=== PATIENT | male | born 1955 | race Caucasian/White ===

== ENCOUNTER → 2016-11-30 | Outpatient (CLI) | payer BC ==
[~2016-11-30] MED LIST: GADOBUTROL 10 ML VIAL IVP ONE
== END ==
LOC: FIMAGING 06:55
PROVIDERS: ATTEND Internal Medicine Cardiovascular Disease
DX: R94.31 Abnormal electrocardiogram [ECG] [EKG] (principal)
CPT/HCPCS: A9585

== ENCOUNTER 2016-12-06 11:00 | Inpatient (IN) | payer BC ==
[2016-12-06] MEDS ORDERED: NS 1,000 ML IV ONE (11:28)
--- NOTE | 2016-12-06 11:46 | CPEKG ---
Heart Rate: 54 RR Interval: 1111 P-R Interval: 156 QRSD Interval: 150 QT Interval: 488 QTC Interval: 463 P [place]: 51 QRS [place]: 107 T Wave [place]: -7 EKG Severity - ABNORMAL ECG - EKG Impression: SINUS RHYTHM EKG Impression: RIGHT BUNDLE BRANCH BLOCK Electronically Signed By: Elie Vance 06-Dec-2016 15:09:37
[2016-12-06 12:05] LABS: % IMMATURE GRANULYOCYTES 0.2 % (0.0-1.1); ABSOLUTE IMMATURE GRANULOCYTES 0.01 10^3/uL (0.00-0.10); ADD DIFF? NO; ADD MORPH? NO; ADD SCAN? NO; ATYPICAL LYMPHOCYTE FLAG 0 (0-99); FRAGMENT RBC FLAG 0 (0-99); HEMATOCRIT 43.4 % (40.0-51.0); LEFT SHIFT FLG 0 (0-99); LIPEMIA HEMOLYSIS FLAG 90 (0-99); MEAN CELL HEMOGLOBIN 30.2 pg (27.9-34.1); MEAN CELL HEMOGLOBIN CONCENTR. 34.6 g/dL (32.4-36.7); MEAN CELL VOLUME 87.3 fL (81.5-99.8); PLATELET CLUMPS FLAG 0 (0-99); PLATELET COUNT 172 10^3/uL (150-400); RED BLOOD CELL COUNT 4.97 10^6/uL (4.40-6.38); RED CELL DISTRIBUTION WIDTH 12.4 % (11.5-15.2)
[2016-12-06 12:14] LABS: INR 1.12 (0.83-1.16); PROTIME(PATIENT) 14.3 SEC (12.0-15.0)
[2016-12-06 12:15] LABS: APTT 29.4 SEC (23.0-38.0)
[2016-12-06 12:23] LABS: ANION GAP 8 mEq/L (8-16); CALCIUM 9.4 mg/dL (8.5-10.4); CARBON DIOXIDE 28 mEq/l (22-31); CHLORIDE 104 mEq/L (97-110); CREATININE 0.9 mg/dL (0.7-1.3); GLOMERULAR FILTRATION RATE > 60; GLUCOSE 87 mg/dL (70-100); MAGNESIUM 2.1 mg/dL (1.6-2.3); POTASSIUM 4.4 mEq/L (3.5-5.2); SODIUM 140 mEq/L (134-144)
--- NOTE | 2016-12-06 14:43 | PDHPUP ---
History & Physical Update H&P update statement: This history and physical update is based on an assessment of the patient which was completed after admission or registration (within 24 hours), but prior to the surgery/procedure. H&P update: H&P reviewed & patient examined, no change in patient's condition since H&P completed
[2016-12-06] MEDS ORDERED: PROPOFOL/EMULSION 500 MG/50 ML BOTTLE IV ONE ×2 (15:22→15:27)
[2016-12-06] MEDS ORDERED: fentaNYL 100 MCG/2 ML INJ ONE (15:22)
[2016-12-06] MEDS ORDERED: ALBUTEROL 3 ML DEYVIAL IH PRN (15:54)
[2016-12-06] MEDS ORDERED: DEXAMETHASONE 4 MG/ML VIAL IVP PRN (15:54)
[2016-12-06] MEDS ORDERED: NALOXONE HCL 0.4 MG/ML INJ IVP PRN (15:54)
[2016-12-06] MEDS ORDERED: fentaNYL 100 MCG/2 ML INJ IVP PRN (15:54)
[2016-12-06] MEDS ORDERED: METOCLOPRAMIDE 10 MG/2 ML VIAL IVP PRN (15:54)
[2016-12-06] MEDS ORDERED: LR 500 ML IV PRN (15:54)
[2016-12-06] MEDS ORDERED: ONDANSETRON 4 MG/2 ML VIAL IVP PRN ×2 (15:54→17:26)
[2016-12-06] MEDS ORDERED: MEPERIDINE 25 MG/ML SYR IVP PRN (15:54)
[2016-12-06] MEDS ORDERED: PROMETHAZINE HCL 25 MG/ML INJ IVP PRN (15:54)
[2016-12-06] MEDS ORDERED: HYDROmorphONE/DILAUDID 1 MG/ML INJ IVP PRN (15:54)
[2016-12-06] MEDS ORDERED: HYDROCODONE/APAP 5/325 TAB PO PRN (15:54)
[2016-12-06] MEDS ORDERED: OXYCODONE/APAP 5/325 TAB PO PRN (15:54)
[2016-12-06] MEDS ORDERED: LABETALOL HCL 50 MG/10 ML SYR IVP PRN (15:54)
[2016-12-06] MEDS ORDERED: ACETAMINOPHEN 500 MG TAB PO PRN (15:54)
--- NOTE | 2016-12-06 15:54 | PDANEPAE ---
ANE History of Present Illness 61 year old male with wide complex tachycardia for EP study. ANE Past Medical History - Cardiovascular History Hx Hypertension: Yes Hx Arrhythmias: Yes - Pulmonary History Hx Sleep Apnea: Yes - Endocrine History Hx Diabetes: No ANE Review of Systems Review of Systems: ANE Patient History - Allergies Allergies/Adverse Reactions: No Known Allergies Allergy (Verified 02/27/14 15:42) - Home Medications Home Medications: Atorvastatin Calcium [Lipitor 10 mg (RX)] 10 mg PO DAILY18 06/14/12 [Last Taken 12/05/16] Aspirin [Aspirin 81mg (*)] 81 mg PO DAILY 12/06/16 [Last Taken 12/03/16] Lisinopril [Zestril 10 mg (*)] 10 mg PO DAILY 12/06/16 [Last Taken 12/05/16] - Smoking Hx Smoking Status: Never smoked ANE Labs/Vital Signs - Labs Result Diagrams: 12/06/16 11:45 12/06/16 11:45 - Vital Signs Height: 193 cm Weight: 113.4 kg ANE Physical Exam - Airway Mallampati Score: Class 2 - Pulmonary Pulmonary: no respiratory distress - Cardiovascular Cardiovascular: regular rate and rhythym - ASA Status ASA Status: III
[2016-12-06] MEDS ORDERED: ISOPROTERENOL HCL/D5W 0.2 MG/50 ML BAG IV ONE ×2 (16:22→16:58)
[2016-12-06] MEDS ORDERED: HEPARIN 10,000 UNIT/10 ML MDV ONE (16:25)
[2016-12-06] MEDS ORDERED: LIDOCAINE 1% 300 MG/30 ML SDV ONE (17:15)
[2016-12-06] MEDS ORDERED: BUPIVACAINE 0.5% 30 ML SDV ONE (17:15)
[2016-12-06] MEDS ORDERED: ACETAMINOPHEN 325 MG TAB PO PRN (17:26)
--- NOTE | 2016-12-06 17:40 | EPPROC ---
Electrophysiology Procedure Note: DIAGNOSTIC ELECTROPHYSIOLOGIC STUDY Procedures performed: 1. Fluoroscopy 2. EP evaluation with RA/RV/LA pace/record, with arrhythmia induction 3. EP evaluation with RA/RV pace record, insert/reposition catheter, with arrhythmia induction 4. [id number] Programmed stimulation + pacing after IV drug INDICATION: Sustained WCT with presyncope requiring cardioversion. PROCEDURE: Catheters & Anesthesia: The patient arrived in the Electrophysiology Laboratory in the fasting state. The right clavicular region, right groin, & left groin area were prepped & draped in the usual sterile manner. Anesthesiologist administered general anesthesia. Appropriate non-invasive blood pressure, pulse oximetry & end- tidal CO2 monitoring was established. All catheters were placed percutaneously using the modified Seldinger technique , and advanced into position under fluoroscopic guidance. Halo catheter was placed along the tricuspid annulus via LFV. One #7 Fijian deflectable octapolar electrode catheter was advanced to the His-bundle position via the left femoral vein (2mm spacing). One #7 [place]ijian deflectable catheter with 10 pairs of electrodes was placed via the left femoral vein into the coronary sinus. Programmed stimulation was performed from the right atrium, right ventricle and coronary sinus (left atrium). Parahisian pacing demonstrated constant H-A interval with changing V-A intervals and stimulus-A intervals during capture and loss of capture of proximal RBB proving retrograde conduction over AV node. Underlying rhythm NSR, RBBB, QRS duration 165 ms AV WBB 430 ms, no antegrade SP Retrograde (VA) WBB 560 ms SCL 1000 ms AH 85 ms HV 45 ms Heparin was administered to keep ACT > 200 seconds. Atrial flutter, CL 200 ms was induced during isoproterenol infusion. Clinically documented WCT was 245 bpm. Ventricular programmed stimulation was performed using standard protocol (2 pacing sites, 2 basic cycle lengths, up to 3 extrastimuli at twice pacing threshold). Ventricular burst pacing and long/short sequence pacing was also performed. 2 different VT were induced: VT #1 CL 210 ms, RBBB, superior axis, required cardioversion VT#2 CL 250-270 ms, RBBB, inferior axis, duration 1 min 30 seconds then self terminated VA dissociation was seen during VT. The catheters were removed. The patient was transferred to the cardiovascular holding area in stable condition. Vascular access sheaths were removed in the holding area. There were no apparent complications. ICD will be placed after d.w. patient. CONCLUSIONS 1. Normal sinus and AV node function. 2. RBBB with QRS duration 165 ms. 3. Sustained monomorphic VT, 2 different morphology induced. 4. Dual chamber ICD recommended, will be placed tomorrow. 5. No apparent complications. Patient Problems: Problems Problem Status Onset Wide-complex tachycardia Acute
--- NOTE | 2016-12-06 17:49 | CPEKG ---
Heart Rate: 69 RR Interval: 870 P-R Interval: 160 QRSD Interval: 162 QT Interval: 464 QTC Interval: 497 P [place]: 30 QRS [place]: -172 T Wave [place]: -7 EKG Severity - ABNORMAL ECG - EKG Impression: SINUS RHYTHM EKG Impression: RIGHT BUNDLE BRANCH BLOCK Electronically Signed By: Elie Vance 07-Dec-2016 06:52:16
[2016-12-06] MEDS: OXYCODONE/APAP 5/325 TAB PO PRN ×2 (18:37→21:40)
[2016-12-06] MEDS: ATORVASTATIN CALCIUM 10 MG TAB PO SCH (21:42)
[2016-12-07 05:26] LABS: % IMMATURE GRANULYOCYTES 0.2 % (0.0-1.1); ABSOLUTE IMMATURE GRANULOCYTES 0.02 10^3/uL (0.00-0.10); ADD DIFF? NO; ADD MORPH? NO; ADD SCAN? NO; ATYPICAL LYMPHOCYTE FLAG 0 (0-99); FRAGMENT RBC FLAG 0 (0-99); HEMATOCRIT 41.3 % (40.0-51.0); HEMOGLOBIN 14.2 g/dL (13.7-17.5); LEFT SHIFT FLG 10 (0-99); LIPEMIA HEMOLYSIS FLAG 90 (0-99); MEAN CELL HEMOGLOBIN 30.2 pg (27.9-34.1); MEAN CELL HEMOGLOBIN CONCENTR. 34.4 g/dL (32.4-36.7); MEAN CELL VOLUME 87.9 fL (81.5-99.8); MEAN PLATELET VOLUME 10.3 fL (8.7-11.7); PLATELET CLUMPS FLAG 10 (0-99); PLATELET COUNT 178 10^3/uL (150-400); RED CELL DISTRIBUTION WIDTH 12.1 % (11.5-15.2)
[2016-12-07 05:33] LABS: INR 1.11 (0.83-1.16); PROTIME(PATIENT) 14.2 SEC (12.0-15.0)
[2016-12-07 05:34] LABS: APTT 28.1 SEC (23.0-38.0)
[2016-12-07 05:47] LABS: ALANINE AMINOTRANSFERASE 37 IU/L (21-72); ALBUMIN 3.9 g/dL (3.5-5.0); ALKALINE PHOSPHATASE 42 IU/L (38-126); ANION GAP 13 mEq/L (8-16); ASPARTATE AMINOTRANSFERASE 22 IU/L (17-59); CALCIUM 8.9 mg/dL (8.5-10.4); CARBON DIOXIDE 23 mEq/l (22-31); CHLORIDE 103 mEq/L (97-110); CREATININE 0.8 mg/dL (0.7-1.3); GLOMERULAR FILTRATION RATE > 60; GLUCOSE 145 mg/dL (70-100); POTASSIUM 4.5 mEq/L (3.5-5.2); SODIUM 139 mEq/L (134-144); TOTAL PROTEIN 6.3 g/dL (6.3-8.2)
[2016-12-07 05:52] LABS: CREATINE KINASE-MB FRACTION 2.35 ng/mL (0.00-3.19); TROPONIN I 0.044 ng/mL (0.000-0.034)
[2016-12-07] MEDS ORDERED: diphenhydrAMINE 25 MG CAP PO ONE (06:00)
[2016-12-07] MEDS ORDERED: NS 1,000 ML IV ONE (06:00)
[2016-12-07] MEDS ORDERED: DIAZEPAM 5 MG TAB PO ONE (06:00)
[2016-12-07] MEDS ORDERED: BACITRACIN IRRIGATION/NS 50,000 UNITS/1,000 ML BTL IRR ONE (06:00)
[2016-12-07] MEDS ORDERED: ceFAZolin 2 GM/DEXTROSE 100 ML IV ONE (06:00)
[2016-12-07] MEDS: ASPIRIN 81 MG CHEWABLE TAB PO SCH (09:03)
[2016-12-07] MEDS: LISINOPRIL 10 MG TAB PO SCH (09:04)
--- NOTE | 2016-12-07 09:08 | CPEKG ---
Heart Rate: 63 RR Interval: 952 P-R Interval: 152 QRSD Interval: 164 QT Interval: 464 QTC Interval: 476 P [place]: 49 QRS [place]: 182 T Wave [place]: -14 EKG Severity - ABNORMAL ECG - EKG Impression: SINUS RHYTHM EKG Impression: RBBB Electronically Signed By: Elie Vance 07-Dec-2016 09:20:05
[2016-12-07] MEDS ORDERED: ENOXAPARIN 60 MG/0.6 ML SYR SC SCH (09:15)
--- NOTE | 2016-12-07 10:11 | PDPROPOC ---
Sedation Plan of Care Sedation Plan of Care: vital signs stable, mental status noted, patient educated of risks, benefits, alternatives, patient can tolerate sedation ASA Classification: ASA 2 Planned drugs: fentanyl, midazolam Mallampati Score: Class 2 Mallampati Reference Image: Patient passed 3-3-2 rule?: Yes
--- NOTE | 2016-12-07 10:14 | PDCARPN ---
Cardiology Progress Note Chief Complaint: Presyncope Assessment/Plan: Assessment: VT with presyncope requiring DCCV Inducible VT at EP study, sustained x 2 RBBB with infrahisian conduction disease QRSx 160 ms Plan: Dual chamber ICD today Risks d.w. patient and - tamponade, ptx, infn, bleed, dvt, pe, lead dislodgement etc Risks of lead fracture and inappropriate ICD shock d.w. him Will start sotalol post ICD to reduce risk of ICD shock Will check genetic testing for ARVD given RBBB and VT 12/07/16 10:12 Subjective: Presyncope with VT, required DCCV Reviewed/Discussed With: family Time Spent With Patient: 25 min Objective: Vital Signs (8 Hrs) Temp Pulse Resp BP Pulse Ox 12/07/16 09:04 118/73 12/07/16 08:19 36.6 C 69 18 118/73 91 L 12/07/16 04:37 36.6 C 68 13 107/68 91 L Intake/Output (24 Hrs) 12/05/16 12/06/16 12/07/16 11:59 11:59 11:59 Intake Total 850 Balance 850 Intake: IV Intake (ml) 850 Other: Weight 113.4 kg Number of Voids Toilet 1 Result Diagrams: 12/07/16 04:36 12/07/16 04:36 Cardiac Labs: Cardiac Lab Results (72 Hrs) 12/07/16 04:36 CK-MB (CK-2) Fraction 2.35 Troponin I 0.044 H ICD10 Worksheet Patient Problems: Problems Problem Status Onset Wide-complex tachycardia Acute
[2016-12-07] MEDS ORDERED: fentaNYL 100 MCG/2 ML INJ ONE ×2 (10:24→10:59)
[2016-12-07] MEDS ORDERED: MIDAZOLAM 2 MG/2 ML VIAL ONE ×3 (10:24→10:59)
[2016-12-07] MEDS ORDERED: BUPIVACAINE 0.5% 30 ML SDV ONE (10:24)
[2016-12-07] MEDS ORDERED: LIDOCAINE 1% 300 MG/30 ML SDV ONE (10:24)
[2016-12-07] MEDS ORDERED: IOPAMIDOL (ISOVUE-300) 100 ML BTL ONE (10:25)
--- NOTE | 2016-12-07 11:49 | EPPROC ---
Electrophysiology Procedure Note: PROCEDURE PERFORMED: 1. Implantation of an A-V Implantable Cardioverter Defibrillator 2. Subclavian vein angiography 3. Fluoroscopy INDICATION: Sustained VT with presyncope VT inducible at EP study Infrahisian conduction disease, RBBB, QRS duration 160 ms PROCEDURE NOTE: Patient presented to the cardiac catheterization laboratory in a fasting, postabsorptive state. The left infraclavicular area was prepped and draped in the usual sterile fashion. EP RN administered sedation. Lidocaine plus bupivacaine was used for local anesthesia. Left subclavian venography was performed by injection of iodinated contrast into the left antecubital vein. This was done to assure patency of the vein and also to assess for any anatomical aberrations. Using a combination of blunt and sharp dissection and electrocautery, the dissection was carried down to the prepectoral fascia. A pocket was made in this anatomical plane. All bleeding was controlled with electrocautery. The pocket was packed with gauze soaked in antibiotic solution. Fluoroscopy was utilized during the entire procedure for venous access and placement of the leads. Using a direct stick technique the left extrathoracic axillary vein was accessed with 2 sticks using the modified Seldinger technique. Placement of the guide wires into the venous system was confirmed by low pressure blood return and also by visualizing the guide wires advancing into the inferior vena cava. A purse string suture was applied around the guide wires. #7 Fr and #6 Fr sheaths were advanced under fluoroscopic guidance over the guide wires. An active fixation ventricular ICD lead was advanced into the right ventricular apex and screwed in place. An active fixation atrial lead was advanced into the right atrial appendage and screwed in place. Please note that patients heart is significantly rightward rotated (AP view looks like [place] view) The peel away sheaths were removed. Pacing thresholds, sensing parameters and leads impedances were measured. There was no diaphragmatic stimulation at maximum output. The leads were sutured to the prepectoral fascia with 3 non-absorbable sutures. The gauze packing was removed from the ICD pocket. The pocket was again inspected for any bleeding. The leads were attached to the ICD securely. The ICD was inserted into the pocket and secured in place with a nonabsorbable suture. Fluoroscopy was performed in [place]AG[place] and [place] planes to verify right sided placement of the leads. Also fluoroscopy of the ICD pocket was performed. Defibrillation testing was not performed. The ICD pocket was closed in 3 layers with absorbable monocryl sutures and rose. Appropriate dressing was applied. The patient left the cardiac catheterization laboratory in stable condition. Serial Numbers: 1. Device SJM Deejay Medina [id number] SN [id number] 2. Atrial Lead SJM Tendril [id number] SN [id number] 3. Ventricular Lead SJM Durata 7122 Q 58 cm SN [id number] (single coil) Stimulation Thresholds & Impedance Measurements: 1. Atrial Lead P 2.4 mV 0.5 V 0.5 ms 418 ohm 2. Ventricular Lead R 6.5 mV 0.5 V 0.5 ms 690 ohm Defibrillation testing: Not performed Pacing Parameters: 1. Pacing mode DDD 2. Lower rate 35 ppm Tachycardia therapy parameters: VF zone: Detection 240 bpm First therapy ATP Subsequent therapies 40 Joule VT zone: Detection 170bpm First therapy ATP x 3 Second therapy 30Joule Subsequent therapies 40 Joule VT monitor zone 150 bpm, no therapies Patient Problems: Problems Problem Status Onset Wide-complex tachycardia Acute
--- NOTE | 2016-12-07 12:16 | CPEKG ---
Heart Rate: 60 RR Interval: 1000 P-R Interval: 168 QRSD Interval: 168 QT Interval: 472 QTC Interval: 472 P [place]: 39 QRS [place]: 129 T Wave [place]: -13 EKG Severity - ABNORMAL ECG - EKG Impression: SINUS RHYTHM EKG Impression: RIGHT BUNDLE BRANCH BLOCK Electronically Signed By: Elie Vance 07-Dec-2016 13:23:23
[2016-12-07] MEDS: OXYCODONE/APAP 5/325 TAB PO PRN (13:29)
--- NOTE | 2016-12-07 14:41 | ASMTCMCOM ---
CM Note CM Note Notes: Reviewed chart and spoke w/RN. Pt having PPM placed today. He will dc home independantly when medically stable. CM available if dc needs arise. Date Signed: 12/07/2016 02:41 PM Electronically Signed By:Rosalina Bailon RN
--- NOTE | 2016-12-07 17:10 | CPEKG ---
Heart Rate: 65 RR Interval: 923 P-R Interval: 164 QRSD Interval: 154 QT Interval: 460 QTC Interval: 479 P [place]: 47 QRS [place]: 139 T Wave [place]: -25 EKG Severity - ABNORMAL ECG - EKG Impression: SINUS RHYTHM EKG Impression: RIGHT BUNDLE BRANCH BLOCK Electronically Signed By: Elie Vance 07-Dec-2016 18:22:15
[2016-12-07] MEDS: ATORVASTATIN CALCIUM 10 MG TAB PO SCH (18:15)
[2016-12-07] MEDS: SOTALOL HCL 80 MG TAB PO SCH (21:09)
[2016-12-08] MEDS: OXYCODONE/APAP 5/325 TAB PO PRN (04:26)
[2016-12-08 05:21] LABS: % IMMATURE GRANULYOCYTES 0.9 % (0.0-1.1); ABSOLUTE IMMATURE GRANULOCYTES 0.08 10^3/uL (0.00-0.10); ABSOLUTE NRBC COUNT 0.02 10^3/uL (0-0.01); ADD DIFF? NO; ADD MORPH? NO; ADD SCAN? NO; ANION GAP 9 mEq/L (8-16); ATYPICAL LYMPHOCYTE FLAG 0 (0-99); CALCIUM 8.8 mg/dL (8.5-10.4); CARBON DIOXIDE 24 mEq/l (22-31); CHLORIDE 103 mEq/L (97-110); CREATININE 0.9 mg/dL (0.7-1.3); FRAGMENT RBC FLAG 0 (0-99); GLOMERULAR FILTRATION RATE > 60; GLUCOSE 99 mg/dL (70-100); HEMATOCRIT 39.8 % (40.0-51.0); HEMOGLOBIN 13.7 g/dL (13.7-17.5); LEFT SHIFT FLG 10 (0-99); LIPEMIA HEMOLYSIS FLAG 90 (0-99); MAGNESIUM 2.1 mg/dL (1.6-2.3); MEAN CELL HEMOGLOBIN 30.4 pg (27.9-34.1); MEAN CELL HEMOGLOBIN CONCENTR. 34.4 g/dL (32.4-36.7); MEAN CELL VOLUME 88.2 fL (81.5-99.8); MEAN PLATELET VOLUME 10.1 fL (8.7-11.7); NRBC-AUTO% 0.2 % (0.0-0.2); PLATELET CLUMPS FLAG 0 (0-99); PLATELET COUNT 170 10^3/uL (150-400); POTASSIUM 4.1 mEq/L (3.5-5.2); RED BLOOD CELL COUNT 4.51 10^6/uL (4.40-6.38); RED CELL DISTRIBUTION WIDTH 12.4 % (11.5-15.2); SODIUM 136 mEq/L (134-144)
--- NOTE | 2016-12-08 07:34 | CPEKG ---
Heart Rate: 52 RR Interval: 1154 P-R Interval: 156 QRSD Interval: 164 QT Interval: 480 QTC Interval: 447 P [place]: 34 QRS [place]: 104 T Wave [place]: -16 EKG Severity - ABNORMAL ECG - EKG Impression: SINUS RHYTHM EKG Impression: RBBB AND LPFB Electronically Signed By: Elie Vance 08-Dec-2016 07:56:03
[2016-12-08] MEDS: ASPIRIN 81 MG CHEWABLE TAB PO SCH (08:40)
[2016-12-08] MEDS: SOTALOL HCL 80 MG TAB PO SCH ×2 (08:40→21:09)
[2016-12-08] MEDS: LISINOPRIL 10 MG TAB PO SCH (08:40)
--- NOTE | 2016-12-08 10:42 | CPEKG ---
Heart Rate: 60 RR Interval: 1000 P-R Interval: 180 QRSD Interval: 160 QT Interval: 464 QTC Interval: 464 P [place]: 52 QRS [place]: 140 T Wave [place]: -5 EKG Severity - ABNORMAL ECG - EKG Impression: ATRIAL-PACED COMPLEXES EKG Impression: RIGHT BUNDLE BRANCH BLOCK Electronically Signed By: Elie Vance 08-Dec-2016 10:43:19
--- NOTE | 2016-12-08 11:01 | PDCARPN ---
Cardiology Progress Note Chief Complaint: Patient reports mild tenderness at AICD insertion site. Assessment/Plan: Assessment: 61-year-old male with significant history of hypertension, hypercholesteremia, MEENA, right bundle branch block. Was admitted to [facility] with wide complex tachycardia at a rate of 245 BPM that required cardioversion. Echocardiogram done at [facility] on 11/19 showing normal LV size, EF of 55%, inferior wall hypokinesis, no significant valvular heart disease. Cardiac catheterization done on 11/18 at [facility] showing normal coronary arteries, EDP of 11. Admitted to [facility] on November after being evaluated by a Dr. Vance in the office for elective electro physiology procedure. EP study showed sustained monomorphic ventricular tachycardia from 2 different morphologies induced. Underwent dual chamber AICD implantation on 12/07 ([employer] generator, atrial lead and RV lead.) Started on sotalol loading last evening. Today, patient reported episode of palpitation around 4:15 a.m., which correlated around 1 premature ventricular contraction. Device check by [employer] rep today showing no arrhythmias, device functioning within normal limits. Evaluation of continuous cardiac monitoring showing occasional premature ventricular contractions, but no malignant arrhythmias or pauses. Electrocardiogram done at 11:00 p.m. last evening 2 hours post 1st dose of sotalol showing QTC at 447 milliseconds, JT 320 milliseconds. Post AICD chest x -ray done yesterday after procedure showing no pneumothorax, no acute cardiopulmonary process. A.m. chest x-ray pending. No significant electrolyte abnormalities noted off of a.m. labs. No anemia. Vital signs stable. Patient reporting mild discomfort at AICD insertion site. Plan: 1. Ventricular tachycardia: Patient underwent AICD implantation yesterday, device showed functioning within normal limits, no arrhythmias noted. Started on sotalol loading last evening, will plan to keep overnight, for monitoring of 1st 4 doses of sotalol. Continue on sotalol at 120 mg p.o. twice daily. Patient potentially getting genetic workup as an outpatient. 2. Post AICD: Device check showing functioning within normal limits, no signs and symptoms noted on infection. Postop chest x-ray showing no pneumothorax. A.m. chest x-ray pending. Patient under activity restrictions of not lifting left arm higher than shoulder height for the next 6 weeks, not lifting more than 10 lb with left upper extremity. 3. Hypertension: Blood pressure within normal limits, has been resumed on home dosage of lisinopril. 4. Hyperlipidemia: Patient has been resume on home doses of atorvastatin. 5. MEENA: Patient using home CPAP at night. Due to the necessity of patient being monitor for sotalol, will plan for at least 1 more overnight stay in hospital, on continuous cardiac monitoring, 2 hour post dosing electrocardiograms. 12/08/16 10:58 Subjective: Patient does report 1 episode of palpitations as a skipped beat around 4:50 this morning, correlating with a premature ventricular contraction. He denies of any chest pressure, pain, shortness of breath, orthopnea, PND, lightheadedness, near-syncope or syncopal events. Reviewed/Discussed With: other (Dr Vance, [employer] device career representative) Objective: Vital Signs (8 Hrs) Temp Pulse Resp BP Pulse Ox 12/08/16 08:40 57 L 130/85 H 12/08/16 08:00 36.5 C 57 L 16 130/85 H 93 12/08/16 05:20 36.8 C 54 L 16 136/89 H 94 Intake/Output (24 Hrs) 12/07/16 12/08/16 12/09/16 05:59 05:59 05:59 Intake Total 850 1670 Output Total 0 Balance 850 1670 Intake: Oral (ml) 820 IV Intake (ml) 850 850 Output: Urine (ml) 0 Toilet 0 Other: Weight 113.4 kg Number of Voids Toilet 1 2 Result Diagrams: 12/08/16 04:26 12/08/16 04:26 Cardiac Labs: Cardiac Lab Results (72 Hrs) 12/07/16 04:36 CK-MB (CK-2) Fraction 2.35 Troponin I 0.044 H - Physical Exam Constitutional: healthy appearing, no apparent distress, obese Ears, Nose, Mouth, Throat: moist mucous membranes Cardiovascular: regular rate and rhythm, no murmurs, no rubs, no gallops, pulses symmetric bilat, No carotid bruit Peripheral Pulses: 2+: carotid (R), carotid (L), dorsalis-pedis (R), dorsalis- pedis (L) Respiratory: clear to auscultate bilat, no crackles, no wheezes Gastrointestinal: normoactive bowel sounds Skin: no rashes, warm, no edema, other (AICD insertion site, left anterior chest just distal to clavicle, dressing clean dry and intact. No redness, swelling, or drainage. No hematoma. Bilateral groin sites, catheter insertion sites, with no redness, swelling, or drainage. No ecchymosis, hematoma, or bleeding) Neurologic: AAOx3 Psychiatric: cooperative, interactive, following commands ICD10 Worksheet Patient Problems: Problems Problem Status Onset Wide-complex tachycardia Acute
[2016-12-08] MEDS: ATORVASTATIN CALCIUM 10 MG TAB PO SCH (17:26)
--- NOTE | 2016-12-08 23:33 | CPEKG ---
Heart Rate: 60 RR Interval: 1000 P-R Interval: 172 QRSD Interval: 158 QT Interval: 464 QTC Interval: 464 P [place]: 45 QRS [place]: 193 T Wave [place]: 6 EKG Severity - ABNORMAL ECG - EKG Impression: SINUS RHYTHM EKG Impression: NONSPECIFIC INTRAVENTRICULAR CONDUCTION DELAY Electronically Signed By: Elie Vnace 09-Dec-2016 06:05:27
[2016-12-09 05:03] VITALS: PULSE 60; RESP 16
[2016-12-09 08:40] VITALS: BP 114/83; TEMP 98.4; O2SAT 93
[2016-12-09] MEDS: LISINOPRIL 10 MG TAB PO SCH (09:33)
[2016-12-09] MEDS: ASPIRIN 81 MG CHEWABLE TAB PO SCH (09:34)
[2016-12-09] MEDS: SOTALOL HCL 80 MG TAB PO SCH (09:41)
--- NOTE | 2016-12-09 12:06 | CPEKG ---
Heart Rate: 60 RR Interval: 1000 P-R Interval: 151 QRSD Interval: 160 QT Interval: 460 QTC Interval: 460 P [place]: 54 QRS [place]: 180 T Wave [place]: -2 EKG Severity - ABNORMAL ECG - EKG Impression: ATRIAL-PACED COMPLEXES EKG Impression: RIGHT BUNDLE BRANCH BLOCK EKG Impression: LEFT POSTERIOR FASCICULAR BLOCK Electronically Signed By: Elie Vance 09-Dec-2016 12:22:11
--- NOTE | 2016-12-09 12:49 | GDS ---
[f rep st] DISCHARGE SUMMARY ADMISSION DIAGNOSES: 1. Wide-complex tachycardia. 2. Hypertension. 3. Hypercholesterolemia. 4. Obstructive sleep apnea. 5. Right bundle branch block. DISCHARGE DIAGNOSES: 1. Ventricular tachycardia. 2. Status post automatic implantable cardioverter-defibrillator implantation, [facility], with [facility] [place] e right atrium and right ventricular leads. 3. Hypertension. 4. Hyperlipidemia. 5. Obstructive sleep apnea. PROCEDURES PERFORMED DURING HOSPITALIZATION: 1. Electrophysiology study. 2. Electrocardiogram. 3. [facility] AICD implantation with atrial and ventricular [facility] leads. 4. Chest x-ray. 5. Sotalol loading. BRIEF HISTORY: Please see history and physical. Briefly, the patient is a 61-year-old male with his tory of hypertension, hypercholesteremia, MEENA, and right bundle branch block. He was admitted. He h ad a recent hospital admission, in which he was noted to have a wide-complex tachycardia requiring ca rdioversion. He did, prior to this admission, undergo cardiac catheterization, which showed normal c oronary arteries. He was seen by Dr. Vance in our office and felt he needed further evaluation with el ectrophysiology study. HOSPITAL COURSE: Patient was admitted on December 06 to the [facility], prepped for procedure, and taken t o electrophysiology suite. There, Dr. Vance performed EP procedure, in which 2 different areas were ab le to sustain monomorphic ventricular tachycardia. No complications. Patient was taken back to the [facility] and ultimately to the PCU for overnight observation, with plans of AICD implantation. On the , the , patient was taken back to the electrophysiology suite, where Dr. Vance successful ly implanted a [facility] AICD, with right atrium and right ventricular leads. No complications. The patient ultimately returned to PCU. Yesterday morning, he did have a device check done by the [facility], showing device functioning within normal limits. Postoperative chest x-ray done was showing n o delayed pneumothorax, no acute cardiopulmonary process. The patient has remained on the PCU since that time, for sotalol loading, which he has been getting 120 mg p.o. b.i.d. He has had 2-hour post dosing EKGs measuring his QTc and JT point, which have all been within normal limits. He has had no arrhythmias since being on PCU post AICD implantation. He denies any chest pain, pressure or palpita tions. Has had no therapeutic discharges from his AICD since being on telemetry. PHYSICAL EXAMINATION: Done today. GENERAL APPEARANCE: Medium built, mildly obese male. He is alert and oriented to person, place, time, and situation. Appears to be under no acute distres s. VITAL SIGNS: Blood pressure 114/83, heart rate 60, with A-paced ventricular response beat on the monitor, respirations 16, saturating 93% on room air, temperature 36.9 degrees Celsius. HEENT: Herosalio d is normocephalic. Lips and tongue are pink and moist, with no signs of cyanosis. Conjunctivae pin k. NECK: Trachea is midline, +2 carotid pulses bilateral. No auscultated bruits, no jugular vein d istention. RESPIRATORY: Lungs clear to auscultation, no rhonchi, rales or wheezes. No accessory mu scle use. CARDIAC: Regular rate, regular rhythm, S1, S2, no S3, S4, gallops, rubs or murmur noted. ABDOMEN: Soft, nontender, bowel sounds x4 quadrants. No organomegaly. No palpable masses. SKIN: [place], warm, dry, no cyanosis, no clubbing, no peripheral edema. VASCULAR: +2 carotid pulses bilate ral. +2 radial pulses bilateral, +1 dorsal pedal and posterior tibial pulses bilateral. AICD implan tation site, left anterior chest, incision intact with rose, no redness, swelling, drainage, ecchy mosis, or hematoma. Catheter insertion sites for EP procedure, bilateral groin site, mild ecchymosis , but no hematoma, redness, swelling, drainage, or hematoma noted at either groin site, no auscultate d bruit noted over either groin site. LABORATORY DATA: Laboratory studies drawn yesterday showed WBC of 9.31, hemoglobin of 13.7, hematocr it of 39.8, platelet count of 170. Sodium 136, potassium 4.1, chloride 103, CO2 24, BUN 20, creatinin e 0.9, glucose 99, calcium 8.8, magnesium 2.1. It was noted post EP procedure that he did have a mil d troponin of 0.044, which was expected with inducing ventricular tachycardia. STUDIES: Electrophysiology study, as mentioned above; AICD implantation, as mentioned above. Chest x-ray done at 8 a.m. yesterday morning showing no acute cardiopulmonary process. No delayed pneumoth orax. Device check done by [facility] rep showing device functioning within normal limits, done yester day on 12/08. Current, 11 a.m., electrocardiogram pending. Most recent electrocardiogram done was l ast night at 11 p.m., showing atrial-paced rhythm with intrinsic nonspecific interventricular conduct ion delay. DISCHARGE DISPOSITION: Patient will be discharged home in stable condition. He is under activity re strictions of not lifting more than 10 pounds for the next week and not lifting left arm higher than shoulder height for the next 6 weeks. DISCHARGE MEDICATIONS: Please see discharge medication reconciliation sheet. Note, patient has been started on sotalol at 120 mg p.o. b.i.d. DISCHARGE INSTRUCTIONS: Post electrophysiology and AICD discharge instructions went over with the pa sandhya and his , including monitoring for signs of infections, bleeding precautions, bathing preca utions, and medication compliancy. They verbalize understanding. The patient has a followup appoint ment next week with our device and a wound check at our office. He has a 3-week followup with Dr. Lucian so. At the time of discharge, patient and verbalized understanding of all instructions and h ave no questions or concerns. They were told that if any problems or concerns come up post discharge , they are to call our office or return to the hospital. Total time spent on discharge: Greater than 30 minutes. /[id number]/MODL
--- NOTE | 2016-12-09 17:51 | ASDISCHSUM ---
Discharge Information Plan Status:Home with No Needs Medically Cleared to Leave: Discharge Date:12/09/2016 12:30 PM CM D/C Disposition:Home, Routine, Self-Care ADT D/C Disposition:Home, Routine, Self-Care Projected Discharge Date:12/09/2016 12:30 PM Transportation at D/C:Family Discharge Delay Reason: Follow-Up Date:12/09/2016 12:30 PM Discharge Slot: Final Diagnosis: Placement Information Patient Contact Information Contact Name:PAULA Relationship: Address:[address] [address] [facility] Work Phone: City:[facility] Phone: [facility]/Zip Code:[place] [address] Email: Financial Information Financial Class:HMO and PPO Plans Primary Plan Desc: OUT OF STATE PPO Primary Plan Number:[id number] Secondary Plan Desc: Secondary Plan Number: Assessment Information [facility] CM Progress Note CM Note CM Note Notes: Reviewed chart and spoke w/RN. Pt having PPM placed today. He will dc home independantly when medically stable. CM available if dc needs arise. Date Signed: 12/07/2016 02:41 PM Electronically Signed By:Rosalina Bailon RN Intervention Information
== END 2016-12-09 12:30 | disposition home or self-care (01) | DRG 227 ==
LOC: FSGY 11:00 → F2W 17:26
PROVIDERS: ADMIT Internal Medicine Cardiovascular Disease; ATTEND Internal Medicine Cardiovascular Disease
PROC: 5A2204Z Restoration of Cardiac Rhythm, Single (ICD-10-PCS; 2016-12-06)
PROC: 4A023FZ Measurement of Cardiac Rhythm, Percutaneous Approach (ICD-10-PCS; 2016-12-06)
PROC: 3E033KZ Introduction of Other Diagnostic Substance into Peripheral Vein, Percutaneous Approach (ICD-10-PCS; 2016-12-06)
PROC: 02HK3KZ Insertion of Defibrillator Lead into Right Ventricle, Percutaneous Approach (ICD-10-PCS; principal; 2016-12-07)
PROC: 02H63KZ Insertion of Defibrillator Lead into Right Atrium, Percutaneous Approach (ICD-10-PCS; principal; 2016-12-07)
PROC: 0JH608Z Insertion of Defibrillator Generator into Chest Subcutaneous Tissue and Fascia, Open Approach (ICD-10-PCS; principal; 2016-12-07)
DX: I47.2 Ventricular tachycardia (principal); I10 Essential (primary) hypertension; E78.5 Hyperlipidemia, unspecified; G47.33 Obstructive sleep apnea (adult) (pediatric); I45.10 Unspecified right bundle-branch block
CPT/HCPCS: C1721; C1731; C1777; C1898; J0690; J1644; J2250; J2704; J3010; Q9967

== ENCOUNTER 2018-05-11 13:33 | Emergency (ER) | payer OTHER ==
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
[2018-05-11] MEDS ORDERED: ACETAMINOPHEN 500 MG TAB PO ONE (14:35)
[2018-05-11 14:50] VITALS: BP 159/116
== END 2018-05-11 14:43 | disposition home or self-care (01) ==
LOC: CED 13:33
DX: S06.0X9A Concussion with loss of consciousness of unspecified duration, initial encounter (principal); I10 Essential (primary) hypertension; I48.91 Unspecified atrial fibrillation; I25.10 Atherosclerotic heart disease of native coronary artery without angina pectoris; E78.5 Hyperlipidemia, unspecified; W00.0XXA Fall on same level due to ice and snow, initial encounter; Y92.9 Unspecified place or not applicable; Y93.89 Activity, other specified; Y99.9 Unspecified external cause status
CPT/HCPCS: 70450-PO